=== PATIENT | female | born 1985 | race Caucasian/White ===

== ENCOUNTER 2019-03-03 20:30 | Inpatient (IN) | payer BC ==
[2019-03-03] MEDS ORDERED: Lactated Ringers 1000 ML Bag* 1,000 ML IV ONE ×2 (20:48→22:28)
[2019-03-03] MEDS ORDERED: Buffered Lidocaine 1% SYRIN* 1 ML/SYRINGE INTRADERM ONE (20:48)
[2019-03-03] MEDS ORDERED: Lidocaine 1%* 5 ML VIAL ONE (20:53)
--- NOTE | 2019-03-03 20:57 | HP ---
General Information - Reason for Visit at 41 3/7 weeks with contractions - General Information Maternal Age: 33 Grav: 2 Para: 1 SAB: 0 IEA: 0 Estimated Due Date: 02/21/19 Determined By: LMP Maternal Blood Type and Rh: O Positive - Results this Serology/RPR Result: Non-Reactive Rubella Result: Immune HBsAg Result: Negative HIV Result: Negative GBS Culture Result: Negative Past Medical History Delivery History: Hx Uncomplicated Vaginal Delivery Delivery History Comment: Vacuum for maternal exhaustion Pertinent Past Medical History: Non-Contributory Pertinent Past Surgical History: None Pertinent Family History: See Records Family History Comment: Father: Diabetes, hypertension - Antepartal Records Antepartal Records: Reviewed, Complicated by: - post-dates Review of Systems Constitutional: Uncomfortable CV Complaint: No Respiratory: Shortness of Breath: No Gastrointestinal: No Nausea/Vomiting, Normal Bowel Movement Genitourinary: No Dysuria, No Bleeding, No Leaking Fluid Musculoskeletal: No Epigastric Pain, Back Pain, Contractions Neurological: No Headache, No Visual Changes Movement: Normal Exam Allergies/Adverse Reactions: Allergies No Known Allergies Allergy (Verified 01/12/16 16:53) B/P: 128/82, P: 95, R: 18, T: 97.6 - Measurements Pre- Weight: 185 lb - Exam Breast: Breast Exam Deferred CVA: No CVA Tenderness Extremities: No Edema Heart: Normal Rhythm/Heart Sounds HEENT: No Significant Findings Lungs: Clear Bilaterally Reflexes: DTR 2+ Thyroid: No Thyromegaly - Abdominal Exam Abdomen Exam: Non-Tender, Fundal Height Consistent with Dates - Ultrasound/Biophysical Profile Ultrasound Status: Not Done Targeted Exam Findings See L&D Outpatient Visit Provider Note for Findings: N/A Estimated Weight: 8 lb by josue's Cervical Exam: 5cm Effacement: 100% Station: -1 Presenting Part: Vertex Membrane Status: Bulging Bleeding/Discharge: None EFM Findings - External Monitor Findings Baseline Heart Rate: 125 External Monitor Findings: Accelerations Present, No Pattern of Variable or Late Decelerations, Variability Moderate Contractions: Regular, Moderate, 45-90 Seconds Contraction Frequency: 2-4 min Assessment/Plan - Assessment A: IUP at 41 3/7 weeks Category I FHR, no evidence of metabolic acidemia Active labor GBS negative P: Admit to inpatient Pt requesting interventions for pain, will start with nitrous and initiate IV access, draw CBC/type and screen Reassess in 1 hr or sooner as indicated Anticipate SVB - Obstetrical Risk Factors Obstetrical Risk Factors: Post-Dates - Plan Plan: Admit - Anticipate Vaginal Delivery - Date/Time of Admission Date of Admission: 03/03/19 Time of Admission: 20:45
[2019-03-03 21:13] LABS: ABS Lymphocytes 1.7 10^3/ul (1.0-4.8); ABS Monocytes 0.5 10^3/ul (0-0.8); ABS Neutrophils 10.5 10^3/ul (1.5-7.7); Eosinophil % 0.2 %; Hematocrit 32 % (35-47); Hemoglobin 10.7 g/dL (12.0-16.0); Lymphocyte % 13.3 %; Mean Corpuscular HGB Conc 33 g/dL (31-36); Mean Corpuscular Hemoglobin 28 pg (27-31); Mean Corpuscular Volume 83 fL (80-97); Platelet Count 313 10^3/uL (150-450); Red Blood Count 3.88 10^6 /uL (3.70-4.87); Red Cell Distribution Width 16 % (10.5-15); White Blood Count 12.8 10^3/uL (3.5-10.8)
[2019-03-03] MEDS ORDERED: Bupivacaine 0.25% SDV PF* 10 ML VIAL INJ ONE (21:56)
[2019-03-03] MEDS ORDERED: OBEPIDURAL* 250 ML EPIDURAL ONE (21:57)
--- NOTE | 2019-03-03 22:19 | PN ---
Progress Note - Progress Note Date of Service: 03/03/19 Note: S: Patient increasingly uncomfortable, not finding relief from nitrous oxide. Requests epidural O: B/P: 156/92, P: 126, R: 20, T: 97.6 FHR: baseline 120, moderate variability, + accelerations, occasional variable deceleration but no pattern of decels and resolved with position change UCs: q 3-4 min, moderate to firm A: IUP at 41 3/7 weeks Category II FHR, doubt metabolic acidemia active labor P: Dr. Sanders paged, in house. Will place CEI Reassess once comfortable, offer AROM Anticipate SVB
[2019-03-03] MEDS ORDERED: Phenylephrine 40 MCG/ML SYRINGE IV PUSH PRN (22:28)
[2019-03-03] MEDS ORDERED: EPHEDrine (Pressors)* 50 MG/ML VIAL IV PUSH PRN (22:28)
[2019-03-03] MEDS ORDERED: Famotidine TAB* 20 MG PO PRN (22:28)
[2019-03-03] MEDS ORDERED: Sodium Citrate/Citric Acid* 15 ML UDC PO PRN (22:28)
[2019-03-03] MEDS: Lactated Ringers 1000 ML Bag* 1,000 ML IV SCH (22:32)
[2019-03-03] MEDS ORDERED: Lactated Ringers 1000 ML Bag* 1,000 ML IV SCH (23:00)
[2019-03-03] MEDS ORDERED: OBEPIDURAL* 250 ML EPIDURAL SCH (23:00)
--- NOTE | 2019-03-03 23:38 | PN ---
Progress Note - Progress Note Date of Service: 03/03/19 Note: S: Feeling more sensation on left side than right, but comfortable with CEI. O: B/P:123/71, P: 86, R: 18, T: 97.6 FHR: baseline 125, moderate variability, + accelerations, no decelerations UCs: q2-4 min, moderate to palpation VE: 6/100/-1, bulging bag. AROM to copious clear fluid A: IUP at 41 3/7 weeks Category I FHR, no evidence of metabolic acidemia Active labor P: Temperatures q2h now that membranes ruptured Pt would like to rest Reassess in 1-3 hrs or sooner as indicated Anticipate SVB
[2019-03-04] MEDS ORDERED: Calcium Carbonate CHEW TAB* 500 MG (TUMS) PO PRN (02:31)
--- NOTE | 2019-03-04 02:38 | PN ---
Progress Note - Progress Note Date of Service: 03/04/19 Note: S: Reports feeling increased pressure O: B/P: 104/58, P: 116, R: 18, T: 99.9 FHR: baseline 130, moderate variability, +accelerations, no decelerations UCs: 2-3 min, moderate to firm VE: 8.5/100/-1 A: IUP at 41 4/7 weeks category I FHR, no evidence of metabolic acidemia active labor P: Reassess in 1/2 hr or sooner as indicated Anticipate SVB
--- NOTE | 2019-03-04 03:19 | PN ---
Progress Note - Progress Note Date of Service: 03/04/19 Note: S: Pt felt heartburn, then vomited a large amount with RN and CNM at bedside. Bed linens changed O: B/P: 133/75, P: 109 by SpO2, R: 18, T: 99.9 FHR: 140, moderate variability, +accelerations, no decelerations UCs: q1.5-3.5, moderate to palpation VE: 9.5/100/-1 A: IUP at 41 4/7 weeks Active labor P: Will await stronger urge to bear down Reassess PRN Anticipate SVB
[2019-03-04] MEDS ORDERED: Oxytocin in LR* 20 UNITS/1,000 ML BAG IVPB ONE (03:57)
[2019-03-04] MEDS ORDERED: Acetaminophen TAB* 325 MG PO ONE (04:44)
[2019-03-04] MEDS ORDERED: Acetaminophen TAB* 325 MG ONE (04:46)
[2019-03-04] MEDS: Lactated Ringers 1000 ML Bag* 1,000 ML IV SCH (05:38)
[2019-03-04] MEDS ORDERED: Dibucaine 1% 28.35 GM TUBE PR PRN (06:44)
[2019-03-04] MEDS ORDERED: Witch Hazel PAD* JAR TOPICAL PRN (06:44)
[2019-03-04] MEDS ORDERED: Acetaminophen TAB* 325 MG PO PRN (06:44)
[2019-03-04] MEDS ORDERED: Glycerin ADULT SUPP PR PRN (06:44)
--- NOTE | 2019-03-04 06:50 | PROCNOTE ---
[facility] OB: Delivery Note - Delivery A Date of : 03/04/19 Time of : 06:06 [place] Sex: Female Score 1 Minute: 8 Score 5 Minutes: 9 Gestational Age in Weeks and Days at Delivery: 41 Weeks and 4 Days Delivery Method: Spontaneous Vaginal Labor: Spontaneous Did Patient attempt ?: N/A, No Previous Amniotic Fluid: Clear Estimated Blood Loss: 300 Anesthesia/Analgesia: CEI for Labor Anesthesia Comment: Binger Delivered By: Gerri Soliz - Nursery Level of Nursery: Regular/Bedside - Perineum Perineal Injury: Perineal Laceration, 1st Degree Perineal Repair: By Delivering Practioner - Events Delivery Events of Note: Pitocin Only After Delivery, Shoulder Dystocia, Maternal Temperature during Labor - Additional Delivery Notes Additional Delivery Notes: in spontaneous labor received CEI per request with good relief. AROM at 2325 to clear fluid. Progressed to complete and complete, began pushing with good maternal effort at 0540. Slow, controlled delivery of infant head OA to SUKHI, 30 second shoulder dystocia resolved with McRobert's position and delivery of the posterior shoulder. Infant delivered to maternal abdomen, dried and stimulated with spontaneous cry, HR >110. Apgars 8 and 9. Cord was clamped x 2 and cut by FOB once pulsations ceased. Amanda placenta followed at 0614, brisk bleeding noted initially, IV pitocin started at 200 cc/hr. Fundus firm with massage. Perineum and vagina inspected, 1st degree perineal laceration noted, repaired in the usual fashion with 3.0 vicryl rapide. Infant , mother and stable at time of note. EBL = 300 cc.
[2019-03-04] MEDS ORDERED: Lactated Ringers 1000 ML Bag* 1,000 ML IV SCH (07:00)
[2019-03-04] MEDS ORDERED: Oxytocin in LR* 20 UNITS/1,000 ML BAG IVPB SCH (07:00)
[2019-03-04] MEDS ORDERED: Simethicone TAB* 80 MG TAB.CHEW PO SCH (08:30)
[2019-03-04] MEDS: Docusate CAP* 100 MG PO SCH ×3 (09:01→23:45)
[2019-03-04] MEDS: Ibuprofen TAB* 600 MG PO PRN ×3 (09:01→23:45)
[2019-03-04 23:49] VITALS: BP 108/61
[2019-03-05 07:06] LABS: ABS Eosinophils 0.2 10^3/ul (0-0.6); ABS Lymphocytes 2.9 10^3/ul (1.0-4.8); ABS Monocytes 0.6 10^3/ul (0-0.8); Eosinophil % 1.1 %; Hematocrit 29 % (35-47); Hemoglobin 9.4 g/dL (12.0-16.0); Lymphocyte % 18.5 %; Mean Corpuscular HGB Conc 32 g/dL (31-36); Mean Corpuscular Hemoglobin 28 pg (27-31); Mean Corpuscular Volume 86 fL (80-97); Mean Platelet Volume 8.2 fL (7.4-10.4); Platelet Count 280 10^3/uL (150-450); Red Blood Count 3.43 10^6 /uL (3.70-4.87); Red Cell Distribution Width 16 % (10.5-15); White Blood Count 15.7 10^3/uL (3.5-10.8)
[2019-03-05] MEDS: Docusate CAP* 100 MG PO SCH (08:39)
[2019-03-05] MEDS ORDERED: Ferrous Gluconate TAB* 324 MG TAB PO SCH (09:00)
[2019-03-05] MEDS: Ibuprofen TAB* 600 MG PO PRN (10:38)
== END 2019-03-05 12:40 | disposition home or self-care (01) | DRG 560 ==
LOC: MCHOBOUT 20:30 → MCHOB 20:48
PROVIDERS: ADMIT Midwife; ATTEND Midwife
PROC: 10E0XZZ Delivery of Products of Conception, External Approach (ICD-10-PCS; principal; 2019-03-04)
PROC: 10907ZC Drainage of Amniotic Fluid, Therapeutic from Products of Conception, Via Natural or Artificial Opening (ICD-10-PCS; 2019-03-04)
PROC: 4A1HXCZ Monitoring of Products of Conception, Cardiac Rate, External Approach (ICD-10-PCS; 2019-03-04)
DX: O48.0 Post-term pregnancy (principal); O75.2 Pyrexia during labor, not elsewhere classified; Z37.0 Single live birth; Z3A.41 41 weeks gestation of pregnancy; O76 Abnormality in fetal heart rate and rhythm complicating labor and delivery; O66.0 Obstructed labor due to shoulder dystocia; O70.0 First degree perineal laceration during delivery; O90.81 Anemia of the puerperium
CPT/HCPCS: 36415; 85025; 86850; 86900; 86901; A9270-GY; J3490